=== PATIENT | male | born 1955 | race Hispanic/Latino ===

== ENCOUNTER 2020-03-11 09:51 | Inpatient (IN) | payer OTHER ==
[~2020-03-11] VITALS: Ht 198.1 cm; Wt 99.7 kg
[~2020-03-11 09:51] MED LIST: ALPR-412 PO; CLON0.1T PO; CLON0.5T23 PO; INSLAN SQ; LISI40TA9 PO; METOPROLOL PO; SERT-440 PO; SIMV40TA59 PO
[2020-03-11 10:30] LABS: BASOPHILS % (AUTO) 0.3 % (0.0-5.0); EOSINOPHILS % (AUTO) 0.8 % (0.0-8.0); HEMATOCRIT 34.8 % (42-54); MEAN CORPUSCULAR HEMOGLOBIN 31.4 pg (27.0-33.0); MEAN CORPUSCULAR HGB CONC 33.9 g/dL (32.0-36.0); MEAN CORPUSCULAR VOLUME 92.6 fL (79-99); MONOCYTES % (AUTO) 7.5 % (3.0-13.0); NEUTROPHILS % (AUTO) 83.8 % (40.0-77.0); PLATELET COUNT (AUTO) 256 K/uL (130-400); RED BLOOD CELL COUNT(AUTO) 3.76 MIL/uL (4.50-6.20); RED CELL DISTRIBUTION WIDTH 13.1 % (11.0-15.5); WHITE BLOOD COUNT (AUTO) 14.3 K/uL (4.8-10.8)
[2020-03-11] MEDS ORDERED: ACETAMINOPHEN 325 MG TAB ONE (10:34)
[2020-03-11 10:42] LABS: INR 1.11 (0.85-1.15); PROTHROMBIN TIME 11.8 SEC (9.6-11.6)
[2020-03-11 10:44] LABS: PARTIAL THROMBOPLASTIN TIME 26.4 SEC (26.3-35.5)
[2020-03-11 10:50] LABS: BILIRUBIN,TOTAL 0.6 mg/dL (0.2-1.0); POTASSIUM 4.7 mmol/L (3.5-5.1); TROPONIN I 0.05 ng/mL (0.00-0.06)
[2020-03-11 11:04] LABS: CREATININE 15.3 mg/dL (0.5-1.5)
[2020-03-11 11:15] LABS: ALBUMIN 2.6 g/dL (3.5-5.0)
[2020-03-11 11:40] LABS: ERYTHROCYTE SEDIMENTATION RATE 121 MM/HR (0-20)
[2020-03-11] MEDS ORDERED: VANCOMYCIN 1G 1.5 GM in 0.9% NACL 250ML 250 ML IV SCH (12:00)
[2020-03-11 13:30] VITALS: BP 131/77
[2020-03-11] MEDS: ZOSYN 3.375GM+NS 50ML 50 ML IV SCH (14:45)
[2020-03-11 16:00] VITALS: BP 105/61
[2020-03-11] MEDS ORDERED: ALPRAZOLAM 2 MG PO PRN (18:30)
[2020-03-11] MEDS ORDERED: CLONIDINE HCL 0.1 MG TABLET PO PRN (18:30)
[2020-03-11] MEDS ORDERED: CLONAZEPAM 0.5 MG PO PRN (18:30)
[2020-03-11] MEDS ORDERED: POTASSIUM CHLORIDE 10% ELIXIR 20 MEQ/15 ML UDCUP PO PRN (18:45)
[2020-03-11] MEDS ORDERED: VANCOMYCIN PROTOCOL PER PHARMACY IV SCH (18:45)
[2020-03-11] MEDS ORDERED: LIDOCAINE HCL-MPF 1% 2ML VIAL IV PRN (18:45)
[2020-03-11] MEDS ORDERED: DEXTROSE 50%-WATER 50 ML DISP.SYRIN IV PRN (18:45)
[2020-03-11] MEDS ORDERED: GLUCAGON 1MG KIT 1 MG ML IM PRN (18:45)
[2020-03-11] MEDS ORDERED: POTASSIUM CHLORIDE 20MEQ/100ML 100 ML IV PRN (18:45)
[2020-03-11] MEDS ORDERED: KCL 20 MEQ ERTAB PO PRN (18:45)
[2020-03-11] MEDS ORDERED: MAGNESIUM 2GM PREMIX 50ML 50 ML IV PRN (18:45)
[2020-03-11] MEDS ORDERED: ZOSYN 3.375GM+NS 50ML 50 ML IV SCH (18:45)
[2020-03-11 19:55] VITALS: BP 108/60
[2020-03-11] MEDS ORDERED: COMPOUND IV REFRIGERATED 1 EACH IVSOLN MISC PRN (20:15)
[2020-03-11] MEDS: INSULIN HUMULIN R 100 UNIT/ML 3ML SQ SCH (21:00)
[2020-03-11] MEDS: INSULIN GLARGINE 100 UNITS/ML 10 ML VIAL SQ SCH (21:00)
[2020-03-11] MEDS: METOPROLOL TARTRATE 50 MG TAB PO SCH (21:00)
[2020-03-11 23:32] VITALS: BP 130/74
[2020-03-12 03:26] VITALS: BP 129/71
[2020-03-12 05:38] LABS: BASOPHILS % (AUTO) 0.5 % (0.0-5.0); EOSINOPHILS % (AUTO) 1.4 % (0.0-8.0); HEMATOCRIT 31.4 % (42-54); LYMPHOCYTES % (AUTO) 11.3 % (21.0-51.0); MEAN CORPUSCULAR HEMOGLOBIN 30.5 pg (27.0-33.0); MEAN CORPUSCULAR HGB CONC 33.4 g/dL (32.0-36.0); MEAN CORPUSCULAR VOLUME 91.3 fL (79-99); MONOCYTES % (AUTO) 10.7 % (3.0-13.0); NEUTROPHILS % (AUTO) 75.3 % (40.0-77.0); PLATELET COUNT (AUTO) 253 K/uL (130-400); RED BLOOD CELL COUNT(AUTO) 3.44 MIL/uL (4.50-6.20); RED CELL DISTRIBUTION WIDTH 12.9 % (11.0-15.5); WHITE BLOOD COUNT (AUTO) 11.2 K/uL (4.8-10.8)
[2020-03-12 06:14] LABS: ALBUMIN 2.3 g/dL (3.5-5.0); BILIRUBIN,TOTAL 0.4 mg/dL (0.2-1.0); MAGNESIUM 2.4 mg/dL (1.80-2.40); PHOSPHORUS 5.5 mg/dL (2.5-4.9); TOTAL PROTEIN, SERUM 7.3 g/dL (6.0-8.3)
[2020-03-12 06:25] LABS: CREATININE 11.2 mg/dL (0.5-1.5)
[2020-03-12] MEDS: INSULIN HUMULIN R 100 UNIT/ML 3ML SQ SCH ×4 (07:30→21:00)
[2020-03-12] MEDS: METOPROLOL TARTRATE 50 MG TAB PO SCH ×2 (08:05→21:16)
[2020-03-12] MEDS: SIMVASTATIN 20 MG TABLET PO SCH (08:05)
[2020-03-12] MEDS: SERTRALINE HCL 50 MG TABLET PO SCH (08:05)
[2020-03-12] MEDS: LISINOPRIL 40 MG TABLET PO SCH (08:05)
[2020-03-12 08:25] VITALS: BP 128/68
[2020-03-12 11:15] VITALS: BP 123/70
[2020-03-12] MEDS: ZOSYN 3.375GM+NS 50ML 50 ML IV SCH (15:14)
[2020-03-12 16:12] VITALS: BP 111/58
[2020-03-12 19:44] VITALS: BP 123/61
[2020-03-12] MEDS: INSULIN GLARGINE 100 UNITS/ML 10 ML VIAL SQ SCH (21:00)
[2020-03-12] MEDS ORDERED: HYDROMORPHONE 2 MG VIAL (2MG/ML) IVP PRN (21:15)
[2020-03-12] MEDS ORDERED: TRAMADOL HCL 50 MG TABLET PO PRN (21:15)
[2020-03-12 23:31] VITALS: BP 126/68
[2020-03-13 03:44] VITALS: BP 115/59
[2020-03-13] MEDS: ZOSYN 3.375GM+NS 50ML 50 ML IV SCH ×2 (03:56→16:01)
[2020-03-13] MEDS: INSULIN HUMULIN R 100 UNIT/ML 3ML SQ SCH ×4 (07:30→20:57)
[2020-03-13 08:03] VITALS: BP 127/66
[2020-03-13] MEDS: SIMVASTATIN 20 MG TABLET PO SCH (08:35)
[2020-03-13] MEDS: SERTRALINE HCL 50 MG TABLET PO SCH (08:36)
[2020-03-13] MEDS: METOPROLOL TARTRATE 50 MG TAB PO SCH (08:36)
[2020-03-13] MEDS: LISINOPRIL 40 MG TABLET PO SCH (08:38)
[2020-03-13] MEDS: ACETAMINOPHEN 325 MG TAB PO PRN (08:38)
[2020-03-13] MEDS ORDERED: LISI5TAB21 PO (08:47)
[2020-03-13] MEDS ORDERED: INSLAN SQ (08:47)
[2020-03-13 11:39] VITALS: BP 129/68
[2020-03-13] MEDS ORDERED: DiphenhydrAMINE HCL 50 MG/ML VIAL IVP PRN (16:00)
[2020-03-13 17:05] VITALS: BP 137/66
[2020-03-13 20:14] VITALS: BP 132/75
[2020-03-13] MEDS: INSULIN GLARGINE 100 UNITS/ML 10 ML VIAL SQ SCH (21:08)
[2020-03-13] MEDS ORDERED: HYDROMORPHONE 2 MG VIAL (2MG/ML) ONE (23:14)
[2020-03-13 23:42] VITALS: BP 105/58
[2020-03-14] MEDS: HYDROMORPHONE 2 MG VIAL (2MG/ML) IVP PRN ×3 (01:32→05:27)
[2020-03-14] MEDS: ZOSYN 3.375GM+NS 50ML 50 ML IV SCH ×2 (02:48→15:37)
[2020-03-14 04:10] VITALS: BP 142/78
[2020-03-14 05:26] LABS: INR 1.1 (0.85-1.15); PROTHROMBIN TIME 11.7 SEC (9.6-11.6)
[2020-03-14 05:28] LABS: PARTIAL THROMBOPLASTIN TIME 21.9 SEC (26.3-35.5)
[2020-03-14 05:35] LABS: POTASSIUM 4.8 mmol/L (3.5-5.1)
[2020-03-14 05:40] LABS: CREATININE 14.8 mg/dL (0.5-1.5)
[2020-03-14 06:06] LABS: EOSINOPHILS % (MANUAL) 4 % (1-6); LYMPHOCYTES % (MANUAL) 17 % (22-44); MAN.DIFF COMMENT-IMPRESSION MANUAL DIFFERENTIAL; METAMYELOCYTES % 1 % (0-0); MONOCYTES % (MANUAL) 10 % (2-9); SEGMENTED NEUTROPHILS % 68 % (40-70)
[2020-03-14 06:12] LABS: HEPATITIS Bs ANTIGEN SCREEN P Negative (Negative)
[2020-03-14 06:18] LABS: HEMATOCRIT 31.5 % (42-54); MEAN CORPUSCULAR HEMOGLOBIN 30.5 pg (27.0-33.0); MEAN CORPUSCULAR HGB CONC 33.7 g/dL (32.0-36.0); MEAN CORPUSCULAR VOLUME 90.8 fL (79-99); PLATELET COUNT (AUTO) 269 K/uL (130-400); RED BLOOD CELL COUNT(AUTO) 3.47 MIL/uL (4.50-6.20); RED CELL DISTRIBUTION WIDTH 13.1 % (11.0-15.5); WHITE BLOOD COUNT (AUTO) 9.5 K/uL (4.8-10.8)
[2020-03-14] MEDS: INSULIN HUMULIN R 100 UNIT/ML 3ML SQ SCH ×4 (06:23→20:24)
[2020-03-14 08:00] VITALS: BP 138/76
[2020-03-14] MEDS: SERTRALINE HCL 50 MG TABLET PO SCH (08:48)
[2020-03-14] MEDS: LISINOPRIL 5 MG TABLET PO SCH (08:49)
[2020-03-14] MEDS: ACETAMINOPHEN 325 MG TAB PO PRN (08:50)
[2020-03-14] MEDS: SIMVASTATIN 20 MG TABLET PO SCH (08:50)
[2020-03-14 12:00] VITALS: BP 115/64
[2020-03-14 16:00] VITALS: BP 130/63
[2020-03-14] MEDS: HYDROMORPHONE 0.5 MG SYG (0.5MG/0.5ML) IVP PRN (19:59)
[2020-03-14 20:12] VITALS: BP 142/72
[2020-03-14] MEDS: INSULIN GLARGINE 100 UNITS/ML 10 ML VIAL SQ SCH (20:29)
[2020-03-14 23:40] VITALS: BP 115/58
[2020-03-15] VITALS (11 sets, daily range): BP systolic 109–137; BP diastolic 49–73
[2020-03-15] MEDS: ZOSYN 3.375GM+NS 50ML 50 ML IV SCH ×2 (02:05→14:59)
[2020-03-15] MEDS: INSULIN HUMULIN R 100 UNIT/ML 3ML SQ SCH ×4 (05:53→19:55)
[2020-03-15 06:02] LABS: HEMATOCRIT 32.3 % (42-54); MEAN CORPUSCULAR HEMOGLOBIN 30.9 pg (27.0-33.0); MEAN CORPUSCULAR HGB CONC 33.4 g/dL (32.0-36.0); MEAN CORPUSCULAR VOLUME 92.6 fL (79-99); PLATELET COUNT (AUTO) 311 K/uL (130-400); RED BLOOD CELL COUNT(AUTO) 3.49 MIL/uL (4.50-6.20); RED CELL DISTRIBUTION WIDTH 13.1 % (11.0-15.5); WHITE BLOOD COUNT (AUTO) 9.9 K/uL (4.8-10.8)
[2020-03-15 06:35] LABS: PHOSPHORUS 7.9 mg/dL (2.5-4.9); POTASSIUM 3.8 mmol/L (3.5-5.1)
[2020-03-15 06:38] LABS: CREATININE 11.5 mg/dL (0.5-1.5)
[2020-03-15 07:16] LABS: BAND NEUTROPHILS % (MANUAL) 1 % (0-2); BASOPHILS % (MANUAL) 2 % (0-2); LYMPHOCYTES % (MANUAL) 14 % (22-44); MAN.DIFF COMMENT-IMPRESSION MANUAL DIFFERENTIAL; MONOCYTES % (MANUAL) 2 % (2-9); SEGMENTED NEUTROPHILS % 81 % (40-70)
[2020-03-15] MEDS ORDERED: NITROGLYCERIN 2 MG VIAL IV ONE (07:16)
[2020-03-15] MEDS ORDERED: IODIXANOL 320 MG/ML 100 ML VIAL ONE ×2 (07:16→09:11)
[2020-03-15] MEDS ORDERED: MIDAZOLAM HCL 1 MG/ML 2ML VIAL ONE (07:16)
[2020-03-15] MEDS ORDERED: FENTANYL CITRATE PF 50 MCG/1 ML 2ML VIAL ONE ×2 (07:16→09:53)
[2020-03-15] MEDS ORDERED: HEPARIN 10,000 UNIT/10ML (1,000 UNIT/ML) VIAL ONE (07:16)
[2020-03-15] MEDS ORDERED: LIDOCAINE HCL 400MG/20ML VIAL ONE (07:17)
[2020-03-15 07:18] LABS: PLATELET MORPHOLOGY COMMENT ADEQUATE
[2020-03-15] MEDS ORDERED: TICAGRELOR 90 MG TABLET ONE ×2 (10:03→19:57)
[2020-03-15] MEDS ORDERED: ASPIRIN 325MG EC TAB PO ONE (10:03)
[2020-03-15] MEDS ORDERED: 0.9%NACL 1000ML 1,000 ML IV SCH (10:30)
[2020-03-15] MEDS: SERTRALINE HCL 50 MG TABLET PO SCH (11:32)
[2020-03-15] MEDS: LISINOPRIL 5 MG TABLET PO SCH (11:32)
[2020-03-15] MEDS: SIMVASTATIN 20 MG TABLET PO SCH (11:32)
[2020-03-15] MEDS: METRONIDAZOLE 500 MG TABLET PO SCH ×2 (14:59→22:00)
[2020-03-15] MEDS ORDERED: DIPH,PERTUSS(ACELL),TET VAC/PF 0.5 ML VIAL IM ONE (15:40)
[2020-03-15] MEDS: INSULIN GLARGINE 100 UNITS/ML 10 ML VIAL SQ SCH (19:59)
[2020-03-15] MEDS: HYDROMORPHONE 0.5 MG SYG (0.5MG/0.5ML) IVP PRN (20:17)
[2020-03-15] MEDS ORDERED: HYDROMORPHONE 2 MG VIAL (2MG/ML) ONE (20:20)
[2020-03-15] MEDS ORDERED: TICAGRELOR 90 MG TABLET PO SCH (21:00)
[2020-03-15] MEDS: HYDROMORPHONE 1 MG INJ IVP PRN ×2 (22:00→22:50)
[2020-03-16] MEDS: HYDROMORPHONE 1 MG INJ IVP PRN ×5 (00:14→04:18)
[2020-03-16 00:20] VITALS: BP 117/71
[2020-03-16] MEDS: ZOSYN 3.375GM+NS 50ML 50 ML IV SCH ×2 (03:03→14:41)
[2020-03-16 04:42] VITALS: BP 120/54
[2020-03-16] MEDS: METRONIDAZOLE 500 MG TABLET PO SCH ×3 (05:30→20:41)
[2020-03-16 06:06] LABS: HEMATOCRIT 30.2 % (42-54); MEAN CORPUSCULAR HEMOGLOBIN 30.8 pg (27.0-33.0); MEAN CORPUSCULAR HGB CONC 33.4 g/dL (32.0-36.0); MEAN CORPUSCULAR VOLUME 92.1 fL (79-99); RED BLOOD CELL COUNT(AUTO) 3.28 MIL/uL (4.50-6.20); WHITE BLOOD COUNT (AUTO) 9.8 K/uL (4.8-10.8)
[2020-03-16] MEDS: INSULIN HUMULIN R 100 UNIT/ML 3ML SQ SCH ×4 (06:10→20:40)
[2020-03-16 06:24] LABS: POTASSIUM 4.1 mmol/L (3.5-5.1)
[2020-03-16 06:30] LABS: CREATININE 13.1 mg/dL (0.5-1.5)
[2020-03-16 08:16] VITALS: BP 120/64
[2020-03-16] MEDS: SIMVASTATIN 20 MG TABLET PO SCH (10:35)
[2020-03-16] MEDS: ASPIRIN 81MG CHEW TAB PO SCH (10:35)
[2020-03-16] MEDS: CLOPIDOGREL 75MG TAB PO SCH (10:35)
[2020-03-16] MEDS: SERTRALINE HCL 50 MG TABLET PO SCH (10:36)
[2020-03-16] MEDS: LISINOPRIL 5 MG TABLET PO SCH (10:39)
[2020-03-16 17:03] VITALS: BP 137/77
[2020-03-16 19:34] VITALS: BP 144/75
[2020-03-16] MEDS: INSULIN GLARGINE 100 UNITS/ML 10 ML VIAL SQ SCH (20:40)
[2020-03-16 23:32] VITALS: BP 129/60
[2020-03-17] VITALS (11 sets, daily range): BP systolic 118–142; BP diastolic 58–82
[2020-03-17] MEDS: ZOSYN 3.375GM+NS 50ML 50 ML IV SCH ×2 (02:00→14:25)
[2020-03-17] MEDS: METRONIDAZOLE 500 MG TABLET PO SCH ×3 (04:50→21:46)
[2020-03-17 06:07] LABS: HEMATOCRIT 32.1 % (42-54); MEAN CORPUSCULAR HEMOGLOBIN 30.4 pg (27.0-33.0); RED BLOOD CELL COUNT(AUTO) 3.49 MIL/uL (4.50-6.20); WHITE BLOOD COUNT (AUTO) 10.8 K/uL (4.8-10.8)
[2020-03-17 06:27] LABS: POTASSIUM 3.7 mmol/L (3.5-5.1)
[2020-03-17] MEDS: INSULIN HUMULIN R 100 UNIT/ML 3ML SQ SCH ×4 (06:35→21:00)
[2020-03-17 06:40] LABS: CREATININE 8.8 mg/dL (0.5-1.5)
[2020-03-17] MEDS: ACETAMINOPHEN 325 MG TAB PO PRN (08:48)
[2020-03-17] MEDS: SIMVASTATIN 20 MG TABLET PO SCH (08:49)
[2020-03-17] MEDS: SERTRALINE HCL 50 MG TABLET PO SCH (08:51)
[2020-03-17] MEDS: CLOPIDOGREL 75MG TAB PO SCH (08:52)
[2020-03-17] MEDS: LISINOPRIL 5 MG TABLET PO SCH (08:52)
[2020-03-17] MEDS: ASPIRIN 81MG CHEW TAB PO SCH (08:53)
[2020-03-17] MEDS ORDERED: 0.9%NACL 1000ML 1,000 ML IV ONE (18:53)
[2020-03-17] MEDS ORDERED: LIDOCAINE HCL 1% 20 ML VIAL ONE (19:06)
[2020-03-17] MEDS ORDERED: BUPIVACAINE/PF 0.5% 30ML VIAL ONE (19:06)
[2020-03-17] MEDS ORDERED: LIDOCAINE PF 100MG/5ML (2%) SYRINGE 5ML ONE (19:22)
[2020-03-17] MEDS ORDERED: FENTANYL CITRATE PF 50 MCG/1 ML 2ML VIAL ONE (19:23)
[2020-03-17] MEDS ORDERED: MIDAZOLAM HCL 1 MG/ML 2ML VIAL ONE (19:23)
[2020-03-17] MEDS ORDERED: ONDANSETRON 4MG INJ ONE (19:23)
[2020-03-17] MEDS ORDERED: PROPOFOL 10 MG/ML 20ML VIAL IV ONE (19:23)
[2020-03-17] MEDS ORDERED: MEPERIDINE-PF 25 MG/ML SYG ONE (19:56)
[2020-03-17] MEDS: INSULIN GLARGINE 100 UNITS/ML 10 ML VIAL SQ SCH (21:00)
[2020-03-18] VITALS (7 sets, daily range): BP systolic 96–125; BP diastolic 56–67
[2020-03-18] MEDS: ZOSYN 3.375GM+NS 50ML 50 ML IV SCH ×2 (02:54→14:32)
[2020-03-18] MEDS: HYDROMORPHONE 1 MG INJ IVP PRN ×2 (03:53→13:18)
[2020-03-18] MEDS: METRONIDAZOLE 500 MG TABLET PO SCH ×3 (05:19→23:26)
[2020-03-18] MEDS: INSULIN HUMULIN R 100 UNIT/ML 3ML SQ SCH ×4 (06:16→20:11)
[2020-03-18 06:42] LABS: HEMATOCRIT 28.2 % (42-54); MEAN CORPUSCULAR HEMOGLOBIN 30.1 pg (27.0-33.0); MEAN CORPUSCULAR HGB CONC 31.9 g/dL (32.0-36.0); MEAN CORPUSCULAR VOLUME 94.3 fL (79-99); RED BLOOD CELL COUNT(AUTO) 2.99 MIL/uL (4.50-6.20); RED CELL DISTRIBUTION WIDTH 13.2 % (11.0-15.5); WHITE BLOOD COUNT (AUTO) 7.3 K/uL (4.8-10.8)
[2020-03-18] MEDS ORDERED: MORPHINE 2 MG SYG ONE (06:44)
[2020-03-18 06:57] LABS: POTASSIUM 4.2 mmol/L (3.5-5.1)
[2020-03-18 07:30] LABS: CREATININE 10.7 mg/dL (0.5-1.5)
[2020-03-18] MEDS ORDERED: VANCOMYCIN 1G 1.5 GM in 0.9% NACL 250ML 250 ML IV SCH (09:00)
[2020-03-18] MEDS: LISINOPRIL 5 MG TABLET PO SCH (09:00)
[2020-03-18] MEDS: SERTRALINE HCL 50 MG TABLET PO SCH (09:24)
[2020-03-18] MEDS: ASPIRIN 81MG CHEW TAB PO SCH (09:24)
[2020-03-18] MEDS: CLOPIDOGREL 75MG TAB PO SCH (09:24)
[2020-03-18] MEDS: SIMVASTATIN 20 MG TABLET PO SCH (09:25)
[2020-03-18] MEDS: MORPHINE 2 MG SYG IVP PRN ×4 (09:25→19:57)
[2020-03-18] MEDS: VANCOMYCIN 1G 1.75 GM in 0.9% NACL 250ML 250 ML IV SCH (14:32)
[2020-03-18] MEDS: ACETAMINOPHEN 325 MG TAB PO PRN (18:06)
[2020-03-18] MEDS: INSULIN GLARGINE 100 UNITS/ML 10 ML VIAL SQ SCH (20:17)
[2020-03-19] MEDS: ZOSYN 3.375GM+NS 50ML 50 ML IV SCH ×2 (02:54→14:13)
[2020-03-19 04:00] VITALS: BP 93/59
[2020-03-19] MEDS: METRONIDAZOLE 500 MG TABLET PO SCH ×3 (05:47→22:03)
[2020-03-19 06:10] LABS: HEMATOCRIT 27.1 % (42-54); MEAN CORPUSCULAR HEMOGLOBIN 31.1 pg (27.0-33.0); MEAN CORPUSCULAR HGB CONC 32.5 g/dL (32.0-36.0); MEAN CORPUSCULAR VOLUME 95.8 fL (79-99); RED BLOOD CELL COUNT(AUTO) 2.83 MIL/uL (4.50-6.20); RED CELL DISTRIBUTION WIDTH 13.2 % (11.0-15.5); WHITE BLOOD COUNT (AUTO) 13.2 K/uL (4.8-10.8)
[2020-03-19 06:51] LABS: POTASSIUM 3.9 mmol/L (3.5-5.1)
[2020-03-19 07:29] LABS: CREATININE 8.9 mg/dL (0.5-1.5)
[2020-03-19] MEDS: INSULIN HUMULIN R 100 UNIT/ML 3ML SQ SCH ×4 (07:30→21:00)
[2020-03-19 08:00] VITALS: BP 128/63
[2020-03-19] MEDS: MORPHINE 2 MG SYG IVP PRN ×5 (08:15→22:12)
[2020-03-19] MEDS: SIMVASTATIN 20 MG TABLET PO SCH (09:05)
[2020-03-19] MEDS: ASPIRIN 81MG CHEW TAB PO SCH (09:05)
[2020-03-19] MEDS: LISINOPRIL 5 MG TABLET PO SCH (09:05)
[2020-03-19] MEDS: CLOPIDOGREL 75MG TAB PO SCH (09:05)
[2020-03-19] MEDS: SERTRALINE HCL 50 MG TABLET PO SCH (09:05)
[2020-03-19 11:38] VITALS: BP 123/71
[2020-03-19 16:00] VITALS: BP 98/56
[2020-03-19 20:08] VITALS: BP 100/55
[2020-03-19] MEDS: INSULIN GLARGINE 100 UNITS/ML 10 ML VIAL SQ SCH (22:10)
[2020-03-19 23:47] VITALS: BP 104/50
[2020-03-20] MEDS: ZOSYN 3.375GM+NS 50ML 50 ML IV SCH ×2 (01:49→14:35)
[2020-03-20 04:10] VITALS: BP 107/57
[2020-03-20 06:14] LABS: HEMATOCRIT 25.8 % (42-54); MEAN CORPUSCULAR HEMOGLOBIN 30.4 pg (27.0-33.0); MEAN CORPUSCULAR HGB CONC 32.2 g/dL (32.0-36.0); MEAN CORPUSCULAR VOLUME 94.5 fL (79-99); RED BLOOD CELL COUNT(AUTO) 2.73 MIL/uL (4.50-6.20); RED CELL DISTRIBUTION WIDTH 13.2 % (11.0-15.5)
[2020-03-20] MEDS: METRONIDAZOLE 500 MG TABLET PO SCH ×3 (06:28→22:13)
[2020-03-20] MEDS: INSULIN HUMULIN R 100 UNIT/ML 3ML SQ SCH ×5 (06:28→17:00)
[2020-03-20 07:02] LABS: POTASSIUM 3.9 mmol/L (3.5-5.1)
[2020-03-20 08:00] VITALS: BP 102/66
[2020-03-20] MEDS: ASPIRIN 81MG CHEW TAB PO SCH (08:57)
[2020-03-20] MEDS: CLOPIDOGREL 75MG TAB PO SCH (08:58)
[2020-03-20] MEDS: LISINOPRIL 5 MG TABLET PO SCH (08:59)
[2020-03-20] MEDS: SIMVASTATIN 20 MG TABLET PO SCH (09:00)
[2020-03-20] MEDS: SERTRALINE HCL 50 MG TABLET PO SCH (09:01)
[2020-03-20] MEDS: MORPHINE 2 MG SYG IVP PRN ×3 (09:18→14:51)
[2020-03-20 11:30] VITALS: BP 114/60
[2020-03-20 16:00] VITALS: BP 109/59
[2020-03-20] MEDS ORDERED: HYDROMORPHONE 2 MG VIAL (2MG/ML) ONE (19:13)
[2020-03-20 19:57] VITALS: BP 98/51
[2020-03-20] MEDS: HYDROMORPHONE 2 MG VIAL (2MG/ML) IVP PRN ×3 (20:34→23:02)
[2020-03-20] MEDS ORDERED: EPOETIN ALFA-EPBX (ESRD) 10,000 UNIT/ML VIAL SQ SCH (21:00)
[2020-03-20] MEDS ORDERED: EPOETIN ALFA 10,000 UNIT/ML VIAL SQ SCH (21:00)
[2020-03-20] MEDS: INSULIN GLARGINE 100 UNITS/ML 10 ML VIAL SQ SCH (21:18)
[2020-03-20 23:36] VITALS: BP 96/49
[2020-03-21] MEDS: HYDROMORPHONE 2 MG VIAL (2MG/ML) IVP PRN ×7 (00:29→23:06)
[2020-03-21] MEDS: ZOSYN 3.375GM+NS 50ML 50 ML IV SCH ×2 (01:45→14:30)
[2020-03-21] MEDS: MORPHINE 2 MG SYG IVP PRN ×3 (03:31→20:44)
[2020-03-21 03:47] LABS: BASOPHILS % (AUTO) 0.9 % (0.0-5.0); EOSINOPHILS % (AUTO) 3.6 % (0.0-8.0); HEMATOCRIT 25.5 % (42-54); LYMPHOCYTES % (AUTO) 14.2 % (21.0-51.0); MEAN CORPUSCULAR HEMOGLOBIN 31.8 pg (27.0-33.0); MEAN CORPUSCULAR HGB CONC 33.3 g/dL (32.0-36.0); MEAN CORPUSCULAR VOLUME 95.5 fL (79-99); MONOCYTES % (AUTO) 9.2 % (3.0-13.0); NEUTROPHILS % (AUTO) 71.4 % (40.0-77.0); PLATELET COUNT (AUTO) 324 K/uL (130-400); RED BLOOD CELL COUNT(AUTO) 2.67 MIL/uL (4.50-6.20); RED CELL DISTRIBUTION WIDTH 13.5 % (11.0-15.5); WHITE BLOOD COUNT (AUTO) 10.2 K/uL (4.8-10.8)
[2020-03-21 04:05] LABS: POTASSIUM 3.8 mmol/L (3.5-5.1)
[2020-03-21 04:09] LABS: CREATININE 12.4 mg/dL (0.5-1.5)
[2020-03-21 04:12] VITALS: BP 115/55
[2020-03-21] MEDS: METRONIDAZOLE 500 MG TABLET PO SCH ×3 (05:19→20:39)
[2020-03-21] MEDS: INSULIN HUMULIN R 100 UNIT/ML 3ML SQ SCH ×3 (05:28→17:00)
[2020-03-21 08:00] VITALS: BP 98/57
[2020-03-21] MEDS: SIMVASTATIN 20 MG TABLET PO SCH (09:18)
[2020-03-21] MEDS: SERTRALINE HCL 50 MG TABLET PO SCH (09:18)
[2020-03-21] MEDS: ASPIRIN 81MG CHEW TAB PO SCH (09:18)
[2020-03-21] MEDS: CLOPIDOGREL 75MG TAB PO SCH (09:19)
[2020-03-21] MEDS: LISINOPRIL 5 MG TABLET PO SCH (09:19)
[2020-03-21 12:00] VITALS: BP 88/50
[2020-03-21] MEDS: VANCOMYCIN 1G 1.75 GM in 0.9% NACL 250ML 250 ML IV SCH (12:48)
[2020-03-21 16:00] VITALS: BP 114/60
[2020-03-21] MEDS: INSULIN GLARGINE 100 UNITS/ML 10 ML VIAL SQ SCH (20:40)
[2020-03-21 20:50] VITALS: BP 98/54
[2020-03-21 23:37] VITALS: BP 113/57
[2020-03-22] MEDS: ZOSYN 3.375GM+NS 50ML 50 ML IV SCH ×2 (01:57→15:15)
[2020-03-22] MEDS: HYDROMORPHONE 2 MG VIAL (2MG/ML) IVP PRN ×5 (01:57→21:34)
[2020-03-22] MEDS: METRONIDAZOLE 500 MG TABLET PO SCH ×3 (05:06→21:32)
[2020-03-22] MEDS: INSULIN HUMULIN R 100 UNIT/ML 3ML SQ SCH ×3 (05:36→17:00)
[2020-03-22 05:52] VITALS: BP 97/67
[2020-03-22 06:12] LABS: HEMATOCRIT 26.5 % (42-54); MEAN CORPUSCULAR HEMOGLOBIN 31.2 pg (27.0-33.0); MEAN CORPUSCULAR HGB CONC 33.2 g/dL (32.0-36.0); RED BLOOD CELL COUNT(AUTO) 2.82 MIL/uL (4.50-6.20); RED CELL DISTRIBUTION WIDTH 13.5 % (11.0-15.5); WHITE BLOOD COUNT (AUTO) 9.5 K/uL (4.8-10.8)
[2020-03-22 06:21] LABS: CREATININE 9.2 mg/dL (0.5-1.5)
[2020-03-22 08:00] VITALS: BP 96/51
[2020-03-22] MEDS: ASPIRIN 81MG CHEW TAB PO SCH (08:27)
[2020-03-22] MEDS: SERTRALINE HCL 50 MG TABLET PO SCH (08:28)
[2020-03-22] MEDS: LISINOPRIL 5 MG TABLET PO SCH (08:33)
[2020-03-22] MEDS: SIMVASTATIN 20 MG TABLET PO SCH (08:33)
[2020-03-22] MEDS: CLOPIDOGREL 75MG TAB PO SCH (08:34)
[2020-03-22] MEDS: MORPHINE 2 MG SYG IVP PRN (08:37)
[2020-03-22 12:00] VITALS: BP 100/53
[2020-03-22 14:40] LABS: INR 1.24 (0.85-1.15)
[2020-03-22 16:00] VITALS: BP 106/53
[2020-03-22 19:32] VITALS: BP 96/54
[2020-03-22] MEDS: INSULIN GLARGINE 100 UNITS/ML 10 ML VIAL SQ SCH (21:33)
[2020-03-23] VITALS (7 sets, daily range): BP systolic 97–124; BP diastolic 45–83
[2020-03-23] MEDS: HYDROMORPHONE 2 MG VIAL (2MG/ML) IVP PRN ×3 (00:45→04:27)
[2020-03-23] MEDS: ZOSYN 3.375GM+NS 50ML 50 ML IV SCH ×3 (01:55→22:42)
[2020-03-23] MEDS: MORPHINE 2 MG SYG IVP PRN (03:51)
[2020-03-23 03:56] LABS: HEMATOCRIT 25.2 % (42-54); MEAN CORPUSCULAR HEMOGLOBIN 31.1 pg (27.0-33.0); MEAN CORPUSCULAR HGB CONC 32.9 g/dL (32.0-36.0); MEAN CORPUSCULAR VOLUME 94.4 fL (79-99); RED BLOOD CELL COUNT(AUTO) 2.67 MIL/uL (4.50-6.20); RED CELL DISTRIBUTION WIDTH 13.9 % (11.0-15.5); WHITE BLOOD COUNT (AUTO) 8.1 K/uL (4.8-10.8)
[2020-03-23 04:09] LABS: POTASSIUM 3.8 mmol/L (3.5-5.1)
[2020-03-23 04:10] LABS: CREATININE 11.1 mg/dL (0.5-1.5)
[2020-03-23] MEDS: INSULIN HUMULIN R 100 UNIT/ML 3ML SQ SCH ×3 (05:39→17:00)
[2020-03-23] MEDS: METRONIDAZOLE 500 MG TABLET PO SCH ×3 (05:40→19:54)
[2020-03-23] MEDS: SERTRALINE HCL 50 MG TABLET PO SCH (08:56)
[2020-03-23] MEDS: SIMVASTATIN 20 MG TABLET PO SCH (08:56)
[2020-03-23] MEDS: LISINOPRIL 5 MG TABLET PO SCH (08:57)
[2020-03-23] MEDS: CLOPIDOGREL 75MG TAB PO SCH (08:57)
[2020-03-23] MEDS: ASPIRIN 81MG CHEW TAB PO SCH (08:58)
[2020-03-23] MEDS ORDERED: VANCOMYCIN PROTOCOL PER PHARMACY IV SCH (11:45)
[2020-03-23] MEDS ORDERED: HYDROMORPHONE 2 MG VIAL (2MG/ML) IVP PRN (11:45)
[2020-03-23] MEDS ORDERED: MORPHINE 2 MG SYG IVP PRN (11:45)
[2020-03-23] MEDS: VANCOMYCIN 1G 1.75 GM in 0.9% NACL 250ML 250 ML IV SCH (11:55)
[2020-03-23] MEDS: EPOETIN ALFA-EPBX (ESRD) 10,000 UNIT/ML VIAL SQ SCH (20:20)
[2020-03-23] MEDS: INSULIN GLARGINE 100 UNITS/ML 10 ML VIAL SQ SCH (20:21)
[2020-03-23] MEDS ORDERED: HYDROMORPHONE 2 MG VIAL (2MG/ML) ONE (21:24)
[2020-03-23] MEDS: HYDROMORPHONE 1 MG INJ IVP PRN ×2 (22:42→23:41)
[2020-03-24] MEDS: HYDROMORPHONE 1 MG INJ IVP PRN ×5 (00:53→05:29)
[2020-03-24 03:38] LABS: HEMATOCRIT 25.8 % (42-54); MEAN CORPUSCULAR HEMOGLOBIN 31.7 pg (27.0-33.0); MEAN CORPUSCULAR HGB CONC 33.3 g/dL (32.0-36.0); MEAN CORPUSCULAR VOLUME 95.2 fL (79-99); PLATELET COUNT (AUTO) 367 K/uL (130-400); RED BLOOD CELL COUNT(AUTO) 2.71 MIL/uL (4.50-6.20); WHITE BLOOD COUNT (AUTO) 8.4 K/uL (4.8-10.8)
[2020-03-24 03:46] LABS: POTASSIUM 3.8 mmol/L (3.5-5.1)
[2020-03-24 03:49] LABS: CREATININE 8.4 mg/dL (0.5-1.5)
[2020-03-24 04:09] LABS: BASOPHILS % (MANUAL) 1 % (0-2); EOSINOPHILS % (MANUAL) 4 % (1-6); LYMPHOCYTES % (MANUAL) 15 % (22-44); MONOCYTES % (MANUAL) 9 % (2-9); SEGMENTED NEUTROPHILS % 71 % (40-70)
[2020-03-24 04:10] LABS: MAN.DIFF COMMENT-IMPRESSION MANUAL DIFFERENTIAL
[2020-03-24 04:16] VITALS: BP 125/58
[2020-03-24] MEDS: METRONIDAZOLE 500 MG TABLET PO SCH ×3 (05:30→21:00)
[2020-03-24] MEDS ORDERED: HYDROMORPHONE 1 MG INJ IVP PRN (05:45)
[2020-03-24] MEDS: INSULIN HUMULIN R 100 UNIT/ML 3ML SQ SCH ×3 (05:50→17:00)
[2020-03-24 07:30] VITALS: BP 113/59
[2020-03-24] MEDS: CLOPIDOGREL 75MG TAB PO SCH (08:39)
[2020-03-24] MEDS: SIMVASTATIN 20 MG TABLET PO SCH (08:39)
[2020-03-24] MEDS: ASPIRIN 81MG CHEW TAB PO SCH (08:40)
[2020-03-24] MEDS: LISINOPRIL 5 MG TABLET PO SCH (08:40)
[2020-03-24] MEDS: SERTRALINE HCL 50 MG TABLET PO SCH (08:40)
[2020-03-24 11:15] VITALS: BP 103/55
[2020-03-24] MEDS: ZOSYN 3.375GM+NS 50ML 50 ML IV SCH ×2 (13:30→23:45)
[2020-03-24 16:00] VITALS: BP 117/60
[2020-03-24 19:47] VITALS: BP 112/60
[2020-03-24] MEDS: INSULIN GLARGINE 100 UNITS/ML 10 ML VIAL SQ SCH (21:00)
[2020-03-24 23:48] VITALS: BP 132/72
[2020-03-25 04:09] VITALS: BP 110/63
[2020-03-25 06:28] LABS: HEMATOCRIT 26.1 % (42-54); MEAN CORPUSCULAR HEMOGLOBIN 31.3 pg (27.0-33.0); MEAN CORPUSCULAR VOLUME 94.9 fL (79-99); RED BLOOD CELL COUNT(AUTO) 2.75 MIL/uL (4.50-6.20); RED CELL DISTRIBUTION WIDTH 14.4 % (11.0-15.5); WHITE BLOOD COUNT (AUTO) 7.9 K/uL (4.8-10.8)
[2020-03-25 06:50] LABS: PHOSPHORUS 7.6 mg/dL (2.5-4.9); POTASSIUM 3.6 mmol/L (3.5-5.1)
[2020-03-25 06:54] LABS: CREATININE 10.6 mg/dL (0.5-1.5)
[2020-03-25 07:00] VITALS: BP 108/61
[2020-03-25] MEDS: INSULIN HUMULIN R 100 UNIT/ML 3ML SQ SCH ×3 (07:30→17:00)
[2020-03-25] MEDS: METRONIDAZOLE 500 MG TABLET PO SCH ×2 (07:31→15:11)
[2020-03-25] MEDS: LISINOPRIL 5 MG TABLET PO SCH (09:00)
[2020-03-25] MEDS: ASPIRIN 81MG CHEW TAB PO SCH (10:24)
[2020-03-25] MEDS: SERTRALINE HCL 50 MG TABLET PO SCH (10:25)
[2020-03-25] MEDS: CLOPIDOGREL 75MG TAB PO SCH (10:25)
[2020-03-25] MEDS: SIMVASTATIN 20 MG TABLET PO SCH (10:25)
[2020-03-25 11:30] VITALS: BP 125/70
[2020-03-25] MEDS: VANCOMYCIN 1G 1.75 GM in 0.9% NACL 250ML 250 ML IV SCH (12:00)
[2020-03-25] MEDS: ZOSYN 3.375GM+NS 50ML 50 ML IV SCH (12:33)
[2020-03-25 16:00] VITALS: BP 107/65
[2020-03-25] MEDS: EPOETIN ALFA-EPBX (ESRD) 10,000 UNIT/ML VIAL SQ SCH (18:27)
== END 2020-03-25 19:53 | DRG 270 ==
LOC: EDH 09:51 → EDHIP 11:35 → OBSVTOIN 11:35 → 3AH 14:16
PROVIDERS: ADMIT Internal Medicine Critical Care Medicine; ATTEND Internal Medicine Critical Care Medicine
PROC: 0LBV0ZZ Excision of Right Foot Tendon, Open Approach (ICD-10-PCS; principal; 2020-03-11)
PROC: 5A1D70Z Performance of Urinary Filtration, Intermittent, Less than 6 Hours Per Day (ICD-10-PCS; 2020-03-11)
PROC: 5A1D70Z Performance of Urinary Filtration, Intermittent, Less than 6 Hours Per Day (ICD-10-PCS; 2020-03-14)
PROC: 04CP3ZZ Extirpation of Matter from Right Anterior Tibial Artery, Percutaneous Approach (ICD-10-PCS; 2020-03-15)
PROC: 04CR3ZZ Extirpation of Matter from Right Posterior Tibial Artery, Percutaneous Approach (ICD-10-PCS; 2020-03-15)
PROC: 047P3ZZ Dilation of Right Anterior Tibial Artery, Percutaneous Approach (ICD-10-PCS; 2020-03-15)
PROC: 047R3ZZ Dilation of Right Posterior Tibial Artery, Percutaneous Approach (ICD-10-PCS; 2020-03-15)
PROC: 5A1D70Z Performance of Urinary Filtration, Intermittent, Less than 6 Hours Per Day (ICD-10-PCS; 2020-03-16)
PROC: 0Y6M0Z9 Detachment at Right Foot, Partial 1st Ray, Open Approach (ICD-10-PCS; 2020-03-17)
PROC: 0Y6M0ZB Detachment at Right Foot, Partial 2nd Ray, Open Approach (ICD-10-PCS; 2020-03-17)
PROC: 0Y6M0ZC Detachment at Right Foot, Partial 3rd Ray, Open Approach (ICD-10-PCS; 2020-03-17)
PROC: 0Y6M0ZD Detachment at Right Foot, Partial 4th Ray, Open Approach (ICD-10-PCS; 2020-03-17)
PROC: 0Y6M0ZF Detachment at Right Foot, Partial 5th Ray, Open Approach (ICD-10-PCS; 2020-03-17)
PROC: B41F1ZZ Fluoroscopy of Right Lower Extremity Arteries using Low Osmolar Contrast (ICD-10-PCS; 2020-03-17)
PROC: B41D1ZZ Fluoroscopy of Aorta and Bilateral Lower Extremity Arteries using Low Osmolar Contrast (ICD-10-PCS; 2020-03-17)
PROC: 0YU Anatomical Regions, Lower Extremities, Supplement (ICD-10-PCS; 2020-03-17)
PROC: 5A1D70Z Performance of Urinary Filtration, Intermittent, Less than 6 Hours Per Day (ICD-10-PCS; 2020-03-18)
PROC: 5A1D70Z Performance of Urinary Filtration, Intermittent, Less than 6 Hours Per Day (ICD-10-PCS; 2020-03-21)
PROC: 5A1D70Z Performance of Urinary Filtration, Intermittent, Less than 6 Hours Per Day (ICD-10-PCS; 2020-03-23)
PROC: 5A1D70Z Performance of Urinary Filtration, Intermittent, Less than 6 Hours Per Day (ICD-10-PCS; 2020-03-25)
DX: E11.52 Type 2 diabetes mellitus with diabetic peripheral angiopathy with gangrene (principal); M72.6 Necrotizing fasciitis; N18.6 End stage renal disease; I13.2 Hypertensive heart and chronic kidney disease with heart failure and with stage 5 chronic kidney disease, or end stage renal disease; E87.2 Acidosis; L03.90 Cellulitis, unspecified; I50.42 Chronic combined systolic (congestive) and diastolic (congestive) heart failure; I42.9 Cardiomyopathy, unspecified; I70.92 Chronic total occlusion of artery of the extremities; M86.8X7 Other osteomyelitis, ankle and foot; E11.22 Type 2 diabetes mellitus with diabetic chronic kidney disease; E11.621 Type 2 diabetes mellitus with foot ulcer; E11.69 Type 2 diabetes mellitus with other specified complication; L08.9 Local infection of the skin and subcutaneous tissue, unspecified; Z89.429 Acquired absence of other toe(s), unspecified side; B35.1 Tinea unguium; L60.2 Onychogryphosis; L97.529 Non-pressure chronic ulcer of other part of left foot with unspecified severity; L97.519 Non-pressure chronic ulcer of other part of right foot with unspecified severity; Z99.2 Dependence on renal dialysis; B96.20 Unspecified Escherichia coli [E. coli] as the cause of diseases classified elsewhere; D63.8 Anemia in other chronic diseases classified elsewhere; E11.622 Type 2 diabetes mellitus with other skin ulcer; E66.9 Obesity, unspecified; E78.5 Hyperlipidemia, unspecified; F41.9 Anxiety disorder, unspecified; I25.10 Atherosclerotic heart disease of native coronary artery without angina pectoris; Z79.02 Long term (current) use of antithrombotics/antiplatelets; Z79.4 Long term (current) use of insulin; Z79.899 Other long term (current) drug therapy; Z83.3 Family history of diabetes mellitus; Z87.891 Personal history of nicotine dependence; Z95.5 Presence of coronary angioplasty implant and graft; Z95.810 Presence of automatic (implantable) cardiac defibrillator; Z20.822 Contact with and (suspected) exposure to COVID-19
CPT/HCPCS: 36415; 37229; 37233; 71045; 73630; 75716; 80048; 80053; 80202; 82550; 82948; 83605; 83735; 83874; 84100; 84145; 84484; 85025; 85027; 85347; 85610; 85651; 85730; 86704; 86706; 86900; 86901; 87040; 87070; 87076; 87077; 87186; 87205; 87340; 87426; 87520; 88307; 88311; 90715; 90935; 93005; 93925; 97039; 99156; 99157; C1725; C1760; C1769; C1893; C1894; G0378; J0885; J1170; J1200; J1644; J1815; J2001; J2175; J2250; J2405; J2543; J2704; J3010; J3370; J3490; J7030; J7050; Q9967; U0003

== ENCOUNTER → 2021-01-31 | Outpatient (CLI) | payer OTHER ==
[~2021-01-31] MED LIST changes: -ALPR-412 PO; -CLON0.1T PO; -LISI40TA9 PO; +LISI5TAB21 PO; -METOPROLOL PO; -SERT-440 PO
== END | disposition home or self-care (01) ==
LOC: SHCH 10:14
PROVIDERS: ATTEND Internal Medicine Cardiovascular Disease
DX: I70.293 Other atherosclerosis of native arteries of extremities, bilateral legs (principal); I73.89 Other specified peripheral vascular diseases
CPT/HCPCS: 93925

== ENCOUNTER 2021-09-10 09:05 | Emergency (ER) | payer OTHER ==
[~2021-09-10] VITALS: Ht 182.9 cm; Wt 103.4 kg
[2021-09-10 09:31] LABS: BASOPHILS % (AUTO) 1.1 % (0.0-5.0); EOSINOPHILS % (AUTO) 3.1 % (0.0-8.0); LYMPHOCYTES % (AUTO) 23.2 % (21.0-51.0); MEAN CORPUSCULAR HEMOGLOBIN 32.2 pg (27.0-33.0); MEAN CORPUSCULAR HGB CONC 33.7 g/dL (32.0-36.0); MEAN CORPUSCULAR VOLUME 95.6 fL (79-99); MONOCYTES % (AUTO) 12.2 % (3.0-13.0); PLATELET COUNT (AUTO) 144 K/uL (130-400); RED BLOOD CELL COUNT(AUTO) 5.44 MIL/uL (4.50-6.20); RED CELL DISTRIBUTION WIDTH 12.9 % (11.0-15.5); WHITE BLOOD COUNT (AUTO) 5.5 K/uL (4.8-10.8)
[2021-09-10 09:45] LABS: ALBUMIN 3.6 g/dL (3.5-5.0); BILIRUBIN,TOTAL 0.6 mg/dL (0.2-1.0); POTASSIUM 4.5 mmol/L (3.5-5.1); TOTAL PROTEIN, SERUM 8.2 g/dL (6.0-8.3)
[2021-09-10 09:53] LABS: CREATININE 10.4 mg/dL (0.5-1.5)
[2021-09-10 11:38] VITALS: BP 109/67
== END 2021-09-10 12:30 | disposition left against medical advice (07) ==
LOC: EDH 09:05
DX: Z45.010 Encounter for checking and testing of cardiac pacemaker pulse generator [battery] (principal); E11.22 Type 2 diabetes mellitus with diabetic chronic kidney disease; N18.6 End stage renal disease; Z79.899 Other long term (current) drug therapy; Z79.4 Long term (current) use of insulin
CPT/HCPCS: 36415; 71045; 80053; 82550; 84484; 85025; 93005